=== PATIENT | female | born 1985 | race Caucasian/White ===

== ENCOUNTER 2023-05-01 16:30 | Emergency (ER) | payer BC, SELFPAY ==
[2023-05-01 16:38] VITALS: BP 132/73; PULSE 86; RESP 18; TEMP 36.5; O2SAT 98; BMI 36.2
--- NOTE | 2023-05-01 16:55 | CRLHL7_ITS ---
For Patients: As a result of the Century Cures Act, medical imaging exams and procedure reports are released immediately into your electronic medical record. You may view this report before your referring provider. If you have questions, please contact your health care provider. INDICATION: Pelvic pain, heavy bleeding. COMPARISON: Pelvic ultrasound 09/13/2014. TECHNIQUE: 2D reza scale and color Doppler images were acquired of the pelvis using a transvaginal approach. FINDINGS: Sonographic images demonstrate a normal size and smooth outer contour of the uterus. The uterus is anteverted in position. The uterus measures 10.2 cm in length by 5.6 cm in AP diameter by 6.0 cm in transverse dimension. Heterogeneous myometrial echotexture. The endometrial lining measures 10 mm in composite thickness. Complex nabothian cyst in the cervix. The right ovary measures 3.6 x 1.9 x 2.8 cm and the left ovary measures 3.2 x 2.0 x 2.0 cm. The ovaries demonstrate normal arterial and venous blood flow on color Doppler analysis. No free fluid in the cul-de-sac. IMPRESSION: 1. Heterogeneous myometrial echotexture. 2. Endometrial thickness within normal limits. 3. No evidence of ovarian torsion. Dictated by Adri Johnson MD @ 05/01/2023 6:28:27 PM (Electronically Signed)
[2023-05-01 17:06] LABS: Appearance Urine Cloudy (Clear); Bilirubin Urine Negative (Negative); Blood Urine 3+ (Negative); Color Urine Yellow (Yellow); Glucose Urine Negative (Negative); Ketones Urine Negative (Negative); Leukocyte Esterase Urine Negative (Negative); Nitrite Urine Negative (Negative); Protein Urine Negative (Negative); Specific Gravity Urine >= 1.030 (1.000-1.030); Urobilinogen Urine 0.2 (0.2-1.0)
[2023-05-01 17:07] LABS: Ur HCG Qualitative* Negative (Negative)
[2023-05-01] MEDS: KETOROLAC 15 MG/ML inj IVP (17:13)
[2023-05-01 17:18] LABS: Basophils Absolute Auto 0.03 K/uL (0.00-0.30); Basophils Percent Auto 0.4 % (0.0-3.0); Eosinophils Absolute Auto 0.39 K/uL (0.00-0.50); Eosinophils Percent Auto 5.5 % (0.0-7.0); Hematocrit 39.7 % (33.0-51.0); Hemoglobin* 12.8 gm/dL (12.0-16.0); Immature Granulocytes Abs Auto 0.01 K/uL (0.00-0.30); Immature Granulocytes Pct Auto 0.1 %; Lymphocytes Absolute Auto 1.95 K/uL (0.90-2.90); Lymphocytes Percent Auto 27.4 % (20-44); Mean Corpuscular HGB Conc 32 gm/dL (32-36); Mean Corpuscular Hemoglobin 29 pg (26-34); Mean Corpuscular Volume 90 fL (80-100); Monocytes Percent Auto 9.7 % (0.0-11.0); Neutrophils Absolute Auto 4.05 K/uL (1.7-7.0); Neutrophils Percent Auto 56.9 % (42.0-72.0); Platelet Count* 252 K/uL (140-440); RDW Coefficient of Variation % 13.3 % (11.5-15.5); Red Blood Count 4.41 m/uL (4.00-5.20); White Blood Count* 7.12 K/uL (4.50-11.00)
[2023-05-01 17:18] LABS: WBC Urine 0-2 (0-5)
[2023-05-01 17:27] LABS: Lactate* 2.2 mmol/L (0.5-1.9)
[2023-05-01 17:28] LABS: Slide Review Reflex No
[2023-05-01 17:31] LABS: Chloride* 109 mmol/L (96-114); Sodium* 139 mmol/L (135-149)
[2023-05-01 17:32] LABS: Potassium* 3.7 mmol/L (3.6-5.1)
[2023-05-01 17:34] LABS: Creatinine* 0.7 mg/dL (0.5-1.5); Est. Creatinine Clearance* 109.92; Estimated Glomerular Filt Rate 113 ml/min
[2023-05-01 17:35] LABS: Blood Urea Nitrogen* 8 mg/dL (5-24); Calcium* 8.4 mg/dL (8.4-10.6); Carbon Dioxide* 22 mmol/L (20-32); Glucose* 112 mg/dL (60-115)
[2023-05-01 18:23] VITALS: BP 136/57; PULSE 66; RESP 16; O2SAT 98
--- NOTE | 2023-05-01 19:07 | ED_ITS ---
HPI - General Adult General Date Seen: 05/01/23 Chief complaint: Abdominal Pain Stated complaint: Intense menstrual cramping Time Seen by Provider: 05/01/23 16:41 Source: patient Mode of arrival: ambulatory Limitations: no limitations History of Present Illness HPI narrative: Patient is a 8-year-old woman who presents for evaluation of painful menses. She says for quite some time she has had a lot of painful cramping with her periods and has fairly heavy periods which lasts 5-7 days. She started her period this morning and along with that has had even more significant pelvic pain than usual. She says she usually takes Midol and has not tried that today because she did not think it would work. She has not had any nausea vomiting or diarrhea, appetite has been normal. Denies urinary symptoms. She does say that she has a sensation of Pelvic fullness. She denies suspicion of , she is not on any control currently but says she is not sexually active. No fevers or chills. She typically changes her tampon once an hour during her periods. She has a nurse practitioner at [facility] which is where she gets her regular care. Related Data Previous Rx's Medication Instructions Recorded norethindrone acetate 5 mg tablet 5 mg PO DAILY 14 days #14 tabs 05/01/23 Allergies Allergy/AdvReac Type Severity Reaction Status Date / Time No Known Drug Allergies Allergy Verified 05/01/23 16:42 Review of Systems Status of ROS: Reports: 6 or more systems reviewed and unremarkable except as noted in History and below [facility] Social History Smoking Status: Current some day smoker What tobacco products do you use: cigarettes Second hand tobacco smoke exposure: No How often do you have a drink containing alcohol: 2-4 times a month How many standard drinks containing alcohol do you have on a typical day: 1 or 2 AUDIT-C Alcohol total score: 2 Non-prescribed substance use: denies use service: No Exam Narrative: Exam Narrative: Vital signs as noted above. In general, an alert, well-appearing patient. Head: Normocephalic, atraumatic. Eyes: Pupils are equal reactive. Extraocular movements are full. Conjunctivae are normal. ENT: Mucous membranes are moist. Throat is normal. Neck: Supple without lymphadenopathy. Heart: Regular rate and rhythm. No murmur or rub. Lungs: Clear bilaterally. No increased work of breathing, crackles or wheezes. Abdomen: Soft With minimal pelvic tenderness, no rebound guarding or rigidity. No tenderness at McBurney's point. No CVA tenderness Extremities: Well perfused. No edema. No calf tenderness. Pulses intact. Neurologic: Patient is alert and oriented to person and place. Speech is fluent. Face is symmetric. Moves all extremities equally. Affect: Normal. Skin: Warm and dry. Well perfused. Const: Vital Signs, click to edit/add: Vital Signs - 24 hr 05/01/23 16:38 05/01/23 18:23 Temperature 97.7 F Pulse Rate [Pulse Oximeter] 86 66 Respiratory Rate 18 16 Blood Pressure [Ri ght Forearm] 136/57 L Blood Pressure [Ri ght Upper Arm] 132/73 Pulse Oximetry 98 98 Oxygen Delivery Me thod Room Air Room Air Documenting provider has reviewed patient's vital signs: yes Course Course Hospital Course: A check some labs to make sure that she was not anemic, that inflammatory markers or white blood cell count were and significantly elevated suggesting an alternative etiology for symptoms such as appendicitis, urinary tract infection, pyelonephritis, tubo-ovarian abscess, ectopic , ovarian torsion or cyst. She had a pelvic ultrasound which is read as following:IMPRESSION: 1. Heterogeneous myometrial echotexture. 2. Endometrial thickness within normal limits. 3. No evidence of ovarian torsion Labs were reassuring. Her white blood cell count is normal at 7, hemoglobin is 12.8. Metabolic panel normal, lactate mildly elevated at 2.2, of uncertain significance. CRP is 1. Urinalysis showed 3+ blood, 1025 red blood cells which I suspect is related to her menses. I am less suspicious of another etiology for bloody urine such as kidney stone given diffuse pelvic pain, With onset with her menses, and history of chronic pain with menses. She had a dose of IV Toradol here and says her pain is essentially gone. I spoke with Dr. gopi weber about this patient. Her ultrasound is possibly suggestive of adenomyosis, but reviewed with the patient that this is a diagnosis of exclusion that really cannot be made on ultrasound. We also talked about endometriosis. At this time I think it is reasonable to let her go home. Per Gynecology recommendation I am prescribing progesterone 5 mg daily. Recommend follow-up with Gynecology to discuss options for further control of her symptoms. If she worsens, has severe uncontrolled pain, vomiting, fevers, etcetera, return any time to the emergency department. Vital Signs Vital signs: Initial Vital Signs Temperature 97.7 F 05/01/23 16:38 Temperature Source Temporal Artery Scan 05/01/23 16:38 Pulse Rate 86 05/01/23 16:38 Respiratory Rate 18 05/01/23 16:38 Blood Pressure 132/73 05/01/23 16:38 Blood Pressure Mean 92 05/01/23 16:38 Blood Pressure Position Sitting 05/01/23 16:38 Pulse Oximetry 98 05/01/23 16:38 Oxygen Delivery Method Room Air 05/01/23 16:38 Vital Signs Temperature 97.7 F 05/01/23 16:38 Pulse Rate 86 05/01/23 16:38 Respiratory Rate 18 05/01/23 16:38 Blood Pressure 132/73 05/01/23 16:38 Pulse Oximetry 98 05/01/23 16:38 Oxygen Delivery Method Room Air 05/01/23 16:38 Temperature 97.7 F 05/01/23 16:38 Pulse Rate 66 05/01/23 18:23 Respiratory Rate 16 05/01/23 18:23 Blood Pressure 136/57 L 05/01/23 18:23 Pulse Oximetry 98 05/01/23 18:23 Oxygen Delivery Method Room Air 05/01/23 18:23 Medical Decision Making Lab Data Labs: Lab Results 05/01/23 05/01/23 Range/Units 16:35 17:07 WBC 7.12 (4.50-11.00) K/uL RBC 4.41 (4.00-5.20) m/uL Hgb 12.8 (12.0-16.0) gm/dL Hct 39.7 (33.0-51.0) % MCV 90 (80-100) fL MCH 29 (26-34) pg MCHC 32 (32-36) gm/dL RDW Coeff of Cordell 13.3 (11.5-15.5) % Plt Count 252 (140-440) K/uL Neut % (Auto) 56.9 (42.0-72.0) % Lymph % (Auto) 27.4 (20-44) % [place]vier % (Auto) 9.7 (0.0-11.0) % Eos % (Auto) 5.5 (0.0-7.0) % Baso % (Auto) 0.4 (0.0-3.0) % Neut # (Auto) 4.05 (1.7-7.0) K/uL Lymph # (Auto) 1.95 (0.90-2.90) K/uL [place] # (Auto) 0.70 (0.00-0.90) K/UL Eos # (Auto) 0.39 (0.00-0.50) K/uL Baso # (Auto) 0.03 (0.00-0.30) K/uL Sodium 139 (135-149) mmol/L Potassium 3.7 (3.6-5.1) mmol/L Chloride 109 (96-114) mmol/L Carbon Dioxide 22 (20-32) mmol/L BUN 8 (5-24) mg/dL Creatinine 0.7 (0.5-1.5) mg/dL Estimated Creat Clear 109.92 Estimated GFR 113 ml/min Glucose 112 (60-115) mg/dL Lactate 2.2 H (0.5-1.9) mmol/L Calcium 8.4 (8.4-10.6) mg/dL C-Reactive Protein 1.0 (0.5-1.0) mg/dL Urine Color Yellow (Yellow) Urine Appearance Cloudy A (Clear) Urine pH 5.0 (5.0-8.5) Ur Specific [place] >= 1.030 (1.000-1.030) Urine Protein Negative (Negative) Urine Glucose (UA) Negative (Negative) Urine Ketones Negative (Negative) Urine Blood 3+ A (Negative) Urine Nitrite Negative (Negative) Urine Bilirubin Negative (Negative) Urine Urobilinogen 0.2 (0.2-1.0) Ur Leukocyte Esterase Negative (Negative) Urine RBC 10-25 A (0-2) Urine WBC 0-2 (0-5) Ur Squamous Epith Cells None (None-Few) Urine Bacteria None (None) Urine Yeast Few A (None) Urine HCG, Qual Negative (Negative) Discharge Plan Discharge Clinical Impression: Menometrorrhagia Patient Disposition: Home, Self-Care Condition: Improved Instructions: Menorrhagia (ED) Additional Instructions: progesterone as prescribed. I would recommend follow-up with [facility] in the next couple weeks. You can call [phone] to schedule appointment with 1 of the providers there. Ibuprofen or Tylenol, Midol, if needed. Return for more severe bleeding, severe uncontrolled pain, or other acute changes. Prescriptions: New norethindrone acetate 5 mg tablet 5 mg PO DAILY 14 Days Qty: 14 0RF Follow Up/Referrals: Provider,Not a Local [Primary Care Provider] - Stand Alone Forms: [employer] Info Instructions
== END 2023-05-01 18:58 | disposition home or self-care (01) ==
PROVIDERS: Emergency Provider Emergency Medicine
DX: N92.1 Excessive and frequent menstruation with irregular cycle (principal)
CPT/HCPCS: 36415; 76830; 80048; 81001; 81025; 83605; 85025; 86140; 93976; 96374; 99284; J1885

== ENCOUNTER 2023-12-25 18:26 | Emergency (ER) | payer BC, SELFPAY ==
[2023-12-25 18:30] VITALS: BP 99/44; PULSE 92; RESP 20; TEMP 36.9; O2SAT 96; BMI 40.3
[2023-12-25 19:28] LABS: PCR FLU A POSITIVE PCR FLU A (Negative); PCR FLU B Negative PCR FLU B (Negative); PCR RSV Negative PCR RSV (Negative); SARS PCR* Negative SARS-CoV-2 (Negative)
--- NOTE | 2023-12-25 19:51 | ED_ITS ---
HPI - General Adult General Chief complaint: Shortness of Breath/Dyspnea Stated complaint: Short of breath, Flu+ Time Seen by Provider: 12/25/23 19:51 History of Present Illness HPI narrative: Pt c/o SOB, weird noise coming from mouth, headache, chills since last week. Has not tested for COVID or flu. 38-year-old woman presenting to the emergency department with concern of shortness of breath. Started feeling sick about 4 days ago. Entire family with ?flu?. Today started to feel worse with some mid chest pain. Also noise coming from her chest. Not wheeze. No history of asthma or reactive airway noted. She has felt chilled but has not measured a fever. Headache and generally achy. Has tried a variety of qjzv-vfa-flkhmii cough medicines and sounds like anesthetic throat lozenges. Vicks as well. Says the pharmacist had recommended Yudelka GREENE. Just thought she should be evaluated now with increasing shortness of breath and some chest pain. She does smoke occasionally; sounds like more of social experience. Has really had a hard time sleeping. Related Data Previous Rx's Medication Instructions Recorded prednisone 20 mg tablet 40 mg (2 x 20 mg) PO DAILY 5 days 12/25/23 #10 tabs Allergies Allergy/AdvReac Type Severity Reaction Status Date / Time No Known Drug Allergies Allergy Verified 12/25/23 18:39 Review of Systems Status of ROS: Reports: 6 or more systems reviewed and unremarkable except as noted in History and below [facility] Surgical History History of laparoscopic cholecystectomy (09/15/14) ?Z90.49 - Acquired absence of other specified parts of digestive tract (ICD- 10) Social History Narrative: single, smoker, works in a chiropractor office Smoking Status: Current some day smoker What tobacco products do you use: cigarettes Second hand tobacco smoke exposure: No How often do you have a drink containing alcohol: 2-4 times a month How many standard drinks containing alcohol do you have on a typical day: 1 or 2 AUDIT-C Alcohol total score: 2 Non-prescribed substance use: denies use service: No Exam Narrative: Exam Narrative: Pleasant. Good energy. Clearly a little uncomfortable mildly tachypneic and mildly labored in her breathing. Restless. Congested in the nasopharynx. No facial swelling or erythema appreciated. Oropharynx is moist. She makes good efforts with breathing for auscultation. This tends to inspire a cough. Heart in elevated rate and regular rhythm. Pain is not really reproducible to palpation of the chest. Well-perfused peripherally. Const: Vital Signs, click to edit/add: Vital Signs - 24 hr 12/25/23 18:30 12/25/23 20:49 Temperature 98.4 F Pulse Rate [Pulse Oximeter] 92 Respiratory Rate 20 [facility] 99/44 L Pulse Oximetry 96 96 Oxygen Delivery Me thod Room Air Documenting provider has reviewed patient's vital signs: yes Course Vital Signs Vital signs: Initial Vital Signs Temperature 98.4 F 12/25/23 18:30 Temperature Source Temporal Artery Scan 12/25/23 18:30 Pulse Rate 92 12/25/23 18:30 Respiratory Rate 20 12/25/23 18:30 Blood Pressure 99/44 L 12/25/23 18:30 Blood Pressure Mean 62 L 12/25/23 18:30 Blood Pressure Position Sitting 12/25/23 18:30 Pulse Oximetry 96 12/25/23 18:30 Oxygen Delivery Method Room Air 12/25/23 18:30 Vital Signs Temperature 98.4 F 12/25/23 18:30 Pulse Rate 92 12/25/23 18:30 Respiratory Rate 20 12/25/23 18:30 Blood Pressure 99/44 L 12/25/23 18:30 Pulse Oximetry 96 12/25/23 18:30 Oxygen Delivery Method Room Air 12/25/23 18:30 Temperature 98.4 F 12/25/23 18:30 Pulse Rate 92 12/25/23 18:30 Respiratory Rate 20 12/25/23 18:30 Blood Pressure 99/44 L 12/25/23 18:30 Pulse Oximetry 96 12/25/23 20:49 Oxygen Delivery Method Room Air 12/25/23 18:30 Medications Administered Medications: Generic Name Dose Route Start Last Admin Trade Name Freq PRN Reason Stop Dose Admin Albuterol/Ipratropium 1 neb 12/25/23 20:04 12/25/23 20:26 Iprat-Albut 0.5-2.5 Mg/3 Ml Neb 12/25/23 20:05 1 neb ONCE ONE Administration Medical Decision Making MDM Narrative Medical decision making narrative: I did offer of nebulizer treatment. I did not hear any wheeze but my hope is to mobilize some secretions. By the time I am seeing Ms. Hu, swabs have been resulted and is positive for influenza type A. Unfortunately too long into illness to benefit from Tamiflu. I think also given this symptom of chest discomfort and increasing shortness of breath chest x-ray would be warranted. I requested a chest x-ray two view. Reviewed by me I do not appreciate any acute infiltrate. No pneumothorax. On reassessment is pleasant still and quite restless and would love to be able to sleep as this has been difficult lately. Feels she is breathing a little easier. Oxygen saturations have been maintained. With more of a ?bronchitis? picture perhaps a setting of influenza, a course of steroid might be beneficial. My concern is that this would affect her sleep. I have written for 1 dose of dexamethasone here in the emergency department. Further prednisone as outpatient if becomes necessary in couple of days. Diphenhydramine to help with sleep tonight dispensed here. See patient discharge plan Lab Data Lab results reviewed: Yes I reviewed the patient's lab results Labs: Lab Results 12/25/23 Range/Units 18:45 SARS-CoV-2 (PCR) Negative SARS-CoV-2 (Negative) Influenza Type A (PCR) POSITIVE PCR FLU A A (Negative) Influenza Type B (PCR) Negative PCR FLU B (Negative) RSV (PCR) Negative PCR RSV (Negative) Discharge Plan Discharge Clinical Impression: Influenza A, Cough Patient Disposition: Home, Self-Care Condition: Stable Additional Instructions: Dexamethasone should stay in your system for about 36 hours to provide some anti-inflammatory affect. I would take some ibuprofen before bed. Can take up to 800 mg per dose. This can be combined with a 1000 mg of acetaminophen per dose as well. Consider getting doxylamine dikh-frt-alfdodh to help with sleep. Unfortunately we do not have any of that here and so we are giving you a couple tabs of diphenhydramine. Sleeping under the mist of a cool mist humidifier might be helpful. I would have normally said that menthol vapors could also be helpful. Hopefully this isn't one of those that was making you cough more. Sleep with head of bed elevated. Pseudoephedrine, I like the 12 hour formulation, for drying and decongestion. This might potentially help with cough as well. As long as are not having fever but still with chest congestion maybe even hearing some wheeze I have sent in a course of prednisone to the pharmacy. This can be stimulating but if in 2 days time you feel you might benefit from that, it is at the pharmacy for you. Zofran for nausea from [facility] if you need Prescriptions: New prednisone 20 mg tablet 40 mg PO DAILY 5 Days Qty: 10 0RF Follow Up/Referrals: Provider,Not a Local [Primary Care Provider] - Stand Alone Forms: [employer] Info Instructions
--- NOTE | 2023-12-25 20:04 | XR_ITS ---
Final Report Patient: GREGORY BELLAMY Facility:?[facility] Patient ID:?[id number] Site Patient ID:?[id number] Site :?[id number] Study:?XRay Chest 2V-12/25/2023 8:38:16 PM Ordering Physician:ELAYNE Final Report: INDICATION: Chest pain. Cough. TECHNIQUE: Chest 2 views. COMPARISON: None. FINDINGS: Cardiovascular and mediastinum: Heart size and vasculature are normal in caliber and appearance. Lungs and pleural spaces: Lungs are clear. No sign of infiltrate or mass. No sign of pleural effusion. No pneumothorax. Bones and soft tissues: No significant findings. IMPRESSION: No acute or significant findings. Dictated by Jaden Caro MD @ 12/25/2023 8:51:27 PM (Electronic Signature)
[2023-12-25] MEDS: IPRAT-ALBUT 0.5-2.5 MG/3 ML NEB 1 NEB IH (20:26)
[2023-12-25 20:49] VITALS: O2SAT 96
== END 2023-12-25 21:55 | disposition home or self-care (01) ==
PROVIDERS: Emergency Provider Family Medicine
DX: J10.1 Influenza due to other identified influenza virus with other respiratory manifestations (principal)
CPT/HCPCS: 71046; 87631; 94640; 94761; 99284

== ENCOUNTER 2025-04-27 15:30 | Emergency (ER) | payer BC, SELFPAY ==
--- OUTSIDE RECORDS SUMMARY | 2025-04-27 15:33 | XMS_ITS | Clinical Summary ---
Author Organization [facility] Address [address] [place] [id number] Care Team Providers Care Shipping Room Supervisor Name Role Phone Pcp, No Primary Care Provider Unavailabl e Allergies No known active allergies Medications hydrOXYzine HCL (ATARAX) 25 mg tabletIndicatio ns:Anxiety TAKE ONE TABLET BY MOUTH EVERY SIX HOURS NEEDED for anxiety/slee p 30 Tablet 03/11/2021 Active escitalopram oxalate (LEXAPRO) 10 mg tabletIndicatio ns:PTSD (post-traumatic stress disorder),Depre ssion with anxiety Take 1 Tablet (10 mg) by mouth every morning. 30 Tablet 1 06/13/2022 Active famotidine (PEPCID) 20 mg tabletIndicatio ns:Heartburn Take 1 Tablet (20 mg) by mouth in the morning and 1 Tablet (20 mg) in the evening. 60 Tablet 06/13/2022 Active Active Problems Problem Noted Date Diagnosed Date PTSD (post-traumatic stress disorder) 11/08/2017 Allergy 06/13/2013 Immunizations Immunization Administration Dates Next Due Human Papilloma Virus Vaccine 04/26/2012 Influenza, IIV3 (Age >=3 years) 07/28/2009,11/19 Tdap 03/18/2017,04/26/2012 Family History Medical History Relation Name Comments Unknown Father biologic father hx unknown Diabetes Maternal Aunt Cancer-breast Maternal Grandmother Hypertension Maternal Grandmother Other Maternal Grandmother sister of this GrMo with breast cancer Throat cancer Maternal Grandmother Alcoholism Maternal Uncle cirrhosis Hypertension Mother Thyroid Disease Mother thyroid canc er Relation Name Status Comments Father Alive Maternal Aunt Maternal Grandmother Maternal Uncle Mother Alive Social History Tobacco Use Types Packs/Day Years Used Date Smoking Tobacco: Every Day Cigarettes Smokeless Tobacco: Never Tobacco Cessation:Ready to Q uit: No; Counseling Given: Yes Comments:3/4 cigs a day. 07/20/2022 Alcohol Use Standard Drinks/Week Comments Yes 0 (1 standard drink = 0.6 oz pur e alcohol) Very rarely PHQ-2 Answer Date Recorded PHQ-2 TOTAL SCORE 4 06/13/2022 Social Connections Answer Date Recorded Frequency of Communication with Friends and Fami ly Not on file 06/20/2023 Financial Resource Strain Answer Date R ecorded Difficulty of Paying Living Expenses 3 06/13/2022 Difficulty of Paying Living Expenses Not on file 06/13/2022 Food Insecurity Answer Date Recorded Worried About Running Out of Food in the Last Ye ar 1 06/13/2022 Transportation Needs Answer Date Record ed Lack of Transportation (Medical) 1 06/13/2022 Housing Stability Answer Date Recorded Unable to Pay for Housing in the Last Year 1 06/13/2022 Comments No Sex and Gender Information Value Date Recorded Sex Assigned at Not on file Legal Sex Female 5:49 AM BUNG DRIVER Gender Identity Not on file Sexual Orientation Not on file 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 Not on file Not on file Not on file Not on file Not on file Not on file Not on file Obstetrics History Para Term AB IAB SAB Ectopic Multiple Livin g Live Births 5 3 3 1 1 3 Date Outcome GA Total Labor Labor/2nd/3rd Weight Sex Type Anes PTL Carito A1 A5 Name Clin SAB 2004 Term 2005 Term 2007 Term Last Filed Vital Signs Vital Sign Reading Time Taken Comments Blood Pressure 115/68 06/13/2022 7:40 AM CDT Pulse 74 06/13/2022 7:40 AM CDT Temperature 36.7 C (98.1 F) 11/19/2017 5:10 PM BUNG DRIVER Respiratory Rate 18 10/04/2010 1:26 PM BUNG DRIVER Oxygen Saturation 97% 06/13/2022 7:40 AM CDT Inhaled Oxygen Concentration - - Weight 74.8 kg (165 lb) 07/20/2022 2:14 PM CDT Height 176.8 cm (5' 9.6) 07/20/2022 2:14 PM CDT Body Mass Index 23.95 07/20/2022 2:14 PM CDT Plan of Treatment Health Maintenance Due Date Last Done Comments HIV for age 15-65 2000 Hepatitis C screening for age 18-79 2003 Hepatitis B series for 19+ (1 of 3 - 19+ 3-dose series) 2004 Depression screening for age 12+ 06/13/2023 06/13/2022, 03/30/2021, 01/17/2021, Additional history exists BMI (ht and wt on same day) for age 18+ 07/20/2023 07/20/2022, 09/14/2020, 04/23/2019, Additional history exists COVID-19 vaccine series ( - 2023- season) 2024 Influenza Vaccine (Season Ended) 2025 07/28/2009, 11/19/2007 Pap test for age 21-65 09/14/2025 , 09/14/2020, 08/05/2015, Additional history exists Tetanus booster 03/18/2027 03/18/2017, 04/06, 04/26/2012 Tdap Completed 03/18/2017, 04/26/2012 Pneumococcal series for age 6-49 Aged Out No longer eligible based on patient's age to complete this topic Procedures Procedure Name Priority Date/Time Associated Diagnosis Comments SUPERVISOR EXTRUSION THIN PREP PAP SCREEN IMAGED Routine 09/14/2020 7:44 AM BUNG DRIVER Screening for malignant neoplasm of cervix from Last 3 Months or Most Recently Relevant to Health Maintenance Results * SUPERVISOR EXTRUSION THIN PREP PAP SCREEN IMAGED (09/14/2020 7:44 AM BUNG DRIVER) Case Report Gynecologic Cytology Report Case: [id number] Authorizing Provider: Nano Lopez PA Collected: 09/14/2020 0744 Ordering Location: [facility] Received: 09/14/2020 0828 Clinic First Screen: Yuliana Crum Specimen: SUPERVISOR EXTRUSION ThinPrep Vial Screening, Cervical 09/22/2020 10:15 AM BUNG DRIVER [facility] ENTRAL LABORATORY INTERPRETATION/ RESULT NEGATIVE FOR INTRAEPITHELIAL LESION OR MALIGNANCY (NIL) (none) 09/22/2020 10:15 AM BUNG DRIVER [facility] ENTRAL LABORATORY at 1015 BUNG DRIVER SPECIMEN ADEQUACY Satisfactory for evaluation No endocervical component seen 09/22/2020 10:15 AM BUNG DRIVER [facility] EN[facility] LABORATORY HPV REQUEST HPV and PAP 09/22/2020 10:15 AM BUNG DRIVER [facility] Date of LMP 08/15/20 09/22/2020 10:15 AM BUNG DRIVER [facility] EN[facility]AL LABOR[facility] Last Pap Date 08/05/15 09/22/2020 10:15 AM BUNG DRIVER [facility] Last Pap Result NIL 0 10:15 AM BUNG DRIVER [facility] Abnormal Pap or [place] Bx in last 5 years No 09/22/2020 10:15 AM BUNG DRIVER [facility] Menstrual Status Regular Periods 09/22/2020 10:15 AM BUNG DRIVER [facility] [place] Bx Done Today No 09/22/2020 10:15 AM BUNG DRIVER [facility] Additional Information None given 09/22/2020 10:15 AM BUNG DRIVER [facility] Comment: Cytology is screened at [facility] - [address], [place] [address] and [facility] - [address] [place] [address] and [facility] - [address] [place] [address] Interpreted at [facility] - [address], [place] [address] Automated Review Successful 09/22/2020 10:15 AM [facility] Comment:Specimen processed s uccessfully by automated front office director device, ThinPrep Imaging System, [employer] ANCILLARY TESTING SUPERVISOR EXTRUSION HPV Ordered, Please see separate report 09/22/2020 10:15 AM [facility] Note The pap test is a screening technique, not a diagnostic procedure. It is used primarily to screen for squamous cancers and precursor lesions. Published studies have shown that it is subject to both false negative and false positive results. The pap test should not be used as the sole means to diagnose or exclude pre-malignant and malignant lesions. 09/22/2020 10:15 AM BUNG DRIVER [facility] LAB[facility] Other (Cervical) Non-Blood / Unknown 09/14/2020 7:44 AM BUNG DRIVER 09/14/2020 8:28 AM BUNG DRIVER [facility]OLOGY Final R esult [facility]-CENTRAL LABORATORY [address] [place] [address], [place] from Last 3 Months or Most Recently Relevant to Health Maintenance Insurance Care Teams Shipping Room Supervisor Relationship Specialty Start Date End Date Pcp, No . PCP - General 01/20/19
[2025-04-27 15:45] VITALS: BP 147/87; PULSE 109; RESP 18; TEMP 37.1; O2SAT 96; BMI 41.1
--- NOTE | 2025-04-27 15:52 | ED.GENADULT ---
HPI - General Adult General Time Seen by Provider: 15:53 Date Seen: 04/27/25 Chief complaint: Cough Stated complaint: Possible Fluid in lungs Time Seen by Provider: 04/27/25 15:50 Source: patient Mode of arrival: ambulatory Limitations: no limitations History of Present Illness HPI narrative: 39-year-old female with history of asthma who comes in today with a cough, which is been going on for about a week and half. She notes a fever up to 101?. She has been using nebulizer with saline as well as albuterol inhaler although she denies history of asthma. She has had nasal congestion. She denies chest pain but does have some tightness and says that she feels rattling in her chest. No abdominal pain, nausea, vomiting, diarrhea. Denies chest pain with breathing or sharp chest pain. Denies lower extremity swelling. Related Data Previous Rx's ?Medication ?Instructions ?Recorded albuterol sulfate 90 mcg/actuation 2 puff inhalation Q4H PRN 11/07/24 aerosol inhaler shortness of breath or wheezing #1 ea benzonatate 200 mg capsule 200 mg PO TID PRN cough #30 caps 11/07/24 albuterol sulfate 2.5 mg/3 mL 2.5 mg (3 mL) inhalation Q4H PRN 04/27/25 (0.083 %) solution for nebulization #90 mL amoxicillin 875 mg tablet 875 mg PO BID #10 tabs 04/27/25 doxycycline hyclate 100 mg capsule 100 mg PO BID #10 caps 04/27/25 prednisone 50 mg tablet 50 mg PO DAILY #5 tabs 04/27/25 Allergies Allergy/AdvReac Type Severity Reaction Status Date / Time No Known Drug Allergies Allergy Verified 11/07/24 14:14 [facility] Surgical History History of laparoscopic cholecystectomy (09/15/14) ?Z90.49 - Acquired absence of other specified parts of digestive tract (ICD-10) Social History Narrative: single, smoker, works in a chiropractor office Smoking Status: Current some day smoker What tobacco products do you use: cigarettes Second hand tobacco smoke exposure: No How often do you have a drink containing alcohol: 2-4 times a month How many standard drinks containing alcohol do you have on a typical day: 1 or 2 AUDIT-C Alcohol total score: 2 Non-prescribed substance use: denies use service: No Exam Narrative: Exam Narrative: General: Well-developed and well-nourished, no acute distress Head: Atraumatic and normocephalic Eyes: Pupils are equal reactive, extraocular motions intact, conjunctiva clear ENT: External nose and ears are normal, posterior pharynx without erythema or exudate Neck: No midline cervical tenderness, full spontaneous range of motion the neck, trachea midline, no adenopathy Heart: Regular rate and rhythm no murmurs or thrills Lungs: Poor air movement throughout with trace expiratory wheezes bilaterally, question of some trace crackles on the right Abdomen: Soft, nontender, nondistended with active bowel sounds Musculoskeletal: No tenderness, deformity, or edema Neurologic: Awake, alert, and oriented x3, no gross focal neurologic deficits, cranial nerves intact as tested Psych: Mood and affect are appropriate Skin: No rashes Const: Vital Signs, click to edit/add: Vital Signs - 24 hr 04/27/25 15:45 Temperature 98.8 F Pulse Rate [Pulse Oximeter] 109 H Respiratory Rate 18 Blood Pressure [Ri ght Upper Arm] 147/87 H Pulse Oximetry 96 Oxygen Delivery Me thod Room Air Course Course ED Course: Reviewed prior emergency department visit from December 2023 which was also for cough, positive influenza test at that time. Patient presents today with cough, nasal congestion, fever which is been going on for about 10 days. She denies chest pain, does note some shortness of breath. On exam here, patient is awake alert, she is tachycardic with no respiratory distress. She has expiratory wheezes bilaterally as well as mild crackles on the right. Prednisone and DuoNeb are ordered, D-dimer will be performed, chest x-ray ordered. Care today complicated by medical problems smoking, reflux. Denies possibility of . Did consider BNP to evaluate for other causes of cough including pulmonary edema or heart failure. X-ray should show if patient has significant pulmonary edema, she has no history of hypertension or cardiac disease, and has runny nose and fever more consistent with infectious etiology of symptoms today. Reevaluation(s) Time of Reevaluation #1: 18:14 Reevaluation #1: Labs independently interpreted by me with negative D-dimer. Chest x-ray independently interpreted by me without acute infiltrate or effusion, radiology interpretation with a focus of discoid atelectasis. However with patient's fever, cough, shortness of breath this could be infectious. Patient was started on antibiotics for community-acquired pneumonia as well as prednisone, albuterol Time of Reevaluation #2: 18:30 Reevaluation #2: Updated patient with findings planned did apologize for the long wait as multiple patients arrived for acute get back in CR. Given new fever and findings on chest x-ray for possible atelectasis or pneumonia, patient started on antibiotic, also will initiate prednisone and albuterol. Stable for discharge. Vital Signs Vital signs: Initial Vital Signs Temperature 98.8 F 04/27/25 15:45 Temperature Source Temporal Artery Scan 04/27/25 15:45 Pulse Rate 109 H 04/27/25 15:45 Respiratory Rate 18 04/27/25 15:45 Blood Pressure 147/87 H 04/27/25 15:45 Blood Pressure Mean 107 H 04/27/25 15:45 Blood Pressure Position Sitting 04/27/25 15:45 Pulse Oximetry 96 04/27/25 15:45 Oxygen Delivery Method Room Air 04/27/25 15:45 Vital Signs Temperature 98.8 F 04/27/25 15:45 Pulse Rate 109 H 04/27/25 15:45 Respiratory Rate 18 04/27/25 15:45 Blood Pressure 147/87 H 04/27/25 15:45 Pulse Oximetry 96 04/27/25 15:45 Oxygen Delivery Method Room Air 04/27/25 15:45 Temperature 98.8 F 04/27/25 15:45 Pulse Rate 109 H 04/27/25 15:45 Respiratory Rate 18 04/27/25 15:45 Blood Pressure 147/87 H 04/27/25 15:45 Pulse Oximetry 96 04/27/25 15:45 Oxygen Delivery Method Room Air 04/27/25 15:45 Medications Administered Medications: Discontinued Medications Generic Name Dose Route Start Last Admin Trade Name Freq PRN Reason Stop Dose Admin Albuterol/Ipratropium 1 neb 04/27/25 16:08 04/27/25 16:46 Iprat-Albut 0.5-2.5 Mg/3 Ml Neb IH 04/27/25 16:09 1 neb ONCE ONE Administration Prednisone 40 mg 04/27/25 16:08 04/27/25 16:46 Prednisone 20 Mg Tablet PO 04/27/25 16:09 40 mg ONCE ONE Administration Medical Decision Making Lab Data Labs: Lab Results 04/27/25 Range/Units 16:24 D-Dimer Quant (PE/DVT) 0.28 (0.00-0.50) ug/ml Discharge Plan Discharge Clinical Impression: Acute bronchitis, Community acquired bacterial pneumonia Patient Disposition: Home, Self-Care Condition: Stable Instructions: Bacterial Pneumonia (DC), Atelectasis (ED) Activity Level: Activity as Tolerated Discharge Diet: Regular Prescriptions: New albuterol sulfate 2.5 mg /3 mL (0.083 %) solution for nebulization 2.5 mg inhalation Q4H PRNQty: 90 0RF doxycycline hyclate 100 mg capsule 100 mg PO BID Qty: 10 0RF amoxicillin 875 mg tablet 875 mg PO BID Qty: 10 0RF prednisone 50 mg tablet 50 mg PO DAILY Qty: 5 0RF No Action benzonatate 200 mg capsule 200 mg PO TID PRN (Reason: cough) Qty: 30 0RF albuterol sulfate 90 mcg/actuation HFA aerosol inhaler 2 puff inhalation Q4H PRN (Reason: shortness of breath or wheezing) Qty: 1 0RF Follow Up/Referrals: Provider,Not a Local [Primary Care Provider, Family Practice] Stand Alone Forms: MyHealth Info Instructions
--- NOTE | 2025-04-27 16:08 | CRLHL7_ITS ---
For Patients: As a result of the Cures Act, medical imaging exams and procedure reports are released immediately into your electronic medical record. You may view this report before your referring provider. If you have questions, please contact your health care provider. INDICATION: Cough, fluid in lungs, fever but not today TECHNIQUE: Chest radiograph 2 views COMPARISON: 04/04/2022 FINDINGS: The sensitivity and specificity of the exam are moderately limited by the patient`s body habitus. Mediastinum: The mediastinum is normal in appearance. The heart silhouette is normal in size and morphology. Lung: There is mild linear density in the right upper lung zone which may be due to a focus of discoid atelectasis. No sign of pleural effusion seen. No pneumothorax is identified. Bone and Soft tissue: Unremarkable for age. IMPRESSION: 1. There is mild linear density in the right upper lung zone which may be due to a focus of discoid atelectasis. Dictated by Israel Morgan MD @ 04/27/2025 5:28:33 PM Dictated by: Israel Morgan MD @ 04/27/2025 17:28:37 (Electronically Signed)
[2025-04-27] MEDS: predniSONE 20 MG TABLET 40 MG PO (16:46)
[2025-04-27] MEDS: IPRAT-ALBUT 0.5-2.5 MG/3 ML NEB 1 NEB IH (16:46)
[2025-04-27 17:54] LABS: D Dimer Quantitative* 0.28 ug/ml (0.00-0.50)
[2025-04-27 18:44] VITALS: PULSE 85; RESP 20; O2SAT 96
== END 2025-04-27 18:50 | disposition home or self-care (01) ==
PROVIDERS: Emergency Provider Family Medicine
DX: J15.9 Unspecified bacterial pneumonia (principal); J40 Bronchitis, not specified as acute or chronic; R50.9 Fever, unspecified
CPT/HCPCS: 36415; 71046; 85379; 94640; 99284; J7512